=== PATIENT | female | born 1995 | race Caucasian/White ===

== ENCOUNTER → 2018-07-18 | Outpatient (CLI) | payer OTHER ==
[~2018-07-18] MED LIST: IBUP800 PO; NEXPLANON; PHENA200 PO; SULTRIDS PO; Verotin-Gr Cap1 EACH PO
[2018-07-19 11:21] LABS: Candida species (DNA Probe) Negative (NEGATIVE); G. vaginalis (DNA Probe) Negative (NEGATIVE); T. vaginalis (DNA Probe) Negative (NEGATIVE)
[2018-07-20 00:12] LABS: CHLAMYDIA TRACHOMATIS, NAA Positive (Negative); NEISSERIA GONORRHOEAE, NAA Negative (Negative)
== END ==
LOC: LAB SHORT 16:45 → LAB 16:45
PROVIDERS: Nurse Practitioner Family
DX: N89.8 Other specified noninflammatory disorders of vagina (principal)
CPT/HCPCS: 87480; 87491; 87510; 87591; 87660

== ENCOUNTER → 2018-08-11 | Outpatient (CLI) | payer OTHER ==
[2018-08-11 14:26] LABS: Candida species (DNA Probe) Negative (NEGATIVE); G. vaginalis (DNA Probe) Positive (NEGATIVE); T. vaginalis (DNA Probe) Negative (NEGATIVE)
== END ==
LOC: LAB 10:00 → LAB SHORT 10:00
PROVIDERS: Registered Nurse Community Health
DX: B00.9 Herpesviral infection, unspecified (principal); Z20.2 Contact with and (suspected) exposure to infections with a predominantly sexual mode of transmission
CPT/HCPCS: 87480; 87510; 87529; 87660

== ENCOUNTER 2018-12-02 21:30 | Emergency (ER) | payer OTHER ==
[~2018-12-02] VITALS: Ht 162.6 cm; Wt 90.7 kg
[2018-12-02 22:01] LABS: BASOPHILS PERCENT AUTO 1 % (0-2); EOSINOPHILS ABSOLUTE AUTO 0.29 K/mm3 (0.00-0.68); EOSINOPHILS PERCENT AUTO 2 % (0-6); Hematocrit 38.4 % (33.0-51.0); Hemoglobin 12.3 g/dL (11.5-16.0); IMMATURE GRAN ABSOLUTE AUTO 0.05 K/mm3 (0.00-0.10); IMMATURE GRAN PERCENT AUTO 0 % (0-1); LYMPHOCYTES ABSOLUTE AUTO 3.35 K/mm3 (0.84-5.20); LYMPHOCYTES PERCENT AUTO 23 % (21-46); MONOCYTES ABSOLUTE AUTO 1.04 K/mm3 (0.16-1.47); MONOCYTES PERCENT AUTO 7 % (4-13); Mean Corpuscular HGB 29.5 pg (26.0-34.0); Mean Corpuscular Volume 92 fL (80-100); Mean Platelet Volume 10.6 fL (9.1-12.4); NEUTROPHILS ABSOLUTE AUTO 9.55 K/mm3 (1.96-9.15); NEUTROPHILS PERCENT AUTO 67 % (41-73); Platelet Count 319 K/mm3 (150-400); RDW Coefficient Variation 13.4 % (11.7-14.2); RDW Standard Deviation 45.6 fL (35.1-46.3); Red Blood Cell Count 4.17 M/mm3 (3.80-5.20); White Blood Cell Count 14.38 K/mm3 (4.00-11.30)
[2018-12-02 22:18] LABS: Alanine Aminotransfer (ALT/SGP 24 U/L (12-78); Albumin, Blood 3.7 g/dL (3.4-5.0); Albumin/Globulin Ratio 0.9 (0.8-1.8); Alk Phos 68 U/L (50-136); Anion Gap 7 mmol/L (6-16); Aspartate Aminotrans (AST/SGOT 18 U/L (12-37); Bilirubin, Total 0.2 mg/dL (0.1-1.0); Blood Urea Nitrogen 11 mg/dL (8-24); Bun/Creatinine Ratio 15.9 (12.0-20.0); CO2, Blood 27 mmol/L (21-32); Calcium, Blood 8.9 mg/dL (8.5-10.1); Chloride, Blood 106 mmol/L (98-108); Creatinine, Blood 0.69 mg/dL (0.40-1.00); Globulin, Blood 4.2 g/dL (2.2-4.0); Glomerular Filtration Rate >60 (60-); Glucose, Blood 89 mg/dL (70-99); Potassium, Blood 3.7 mmol/L (3.5-5.5); Sodium, Blood 140 mmol/L (136-145); Total Protein, Blood 7.9 g/dL (6.4-8.2)
[2018-12-03] LABS: Source, Urine Clean Catch
[2018-12-03 00:02] LABS: Bilirubin, Urine Neg (Neg); Blood, Urine Neg (Neg); Glucose Qualitative, Urine Neg (Neg); Ketones, Urine Neg (Neg); Leukocyte Esterase, Urine 2+ (Neg); Nitrite, Urine Neg (Neg); Protein, Urine Neg (Neg); Urobilinogen, Urine NORM (Normal)
[2018-12-03 00:07] LABS: Appearance, Urine Clear (Clear); Color, Urine Yellow (P-Yellow)
[2018-12-03 00:09] LABS: Bacteria Few /hpf; Red Blood Cells, Urine Not Seen /hpf (0-2); Squamous Epithelial Cells Few /hpf (Few)
[2018-12-03] MEDS ORDERED: CEPH500 PO (01:08)
== END 2018-12-03 01:36 | disposition home or self-care (01) ==
LOC: ER 21:30
PROVIDERS: Emergency Medicine
DX: N83.02 Follicular cyst of left ovary (principal); N83.01 Follicular cyst of right ovary; Z91.030 Bee allergy status; Z91.040 Latex allergy status; Z88.2 Allergy status to sulfonamides; Z91.048 Other nonmedicinal substance allergy status; Z91.011 Allergy to milk products; Z79.899 Other long term (current) drug therapy; F17.200 Nicotine dependence, unspecified, uncomplicated
CPT/HCPCS: 36415; 76830; 76856; 80053; 81001; 81025; 85025; 87086; 96374; 99284-25; J1885

== ENCOUNTER 2018-12-26 05:59 | Inpatient (IN) | payer OTHER ==
[~2018-12-26] VITALS: Ht 162.6 cm; Wt 90.2 kg
[~2018-12-26 05:59] MED LIST changes: +CEPH500 PO; -IBUP800 PO
[2018-12-26 06:31] LABS: Source, Urine Clean Catch
[2018-12-26 06:35] LABS: Bilirubin, Urine Neg (Neg); Blood, Urine Neg (Neg); Glucose Qualitative, Urine Neg (Neg); Ketones, Urine Neg (Neg); Leukocyte Esterase, Urine Neg (Neg); Nitrite, Urine Neg (Neg); Protein, Urine Neg (Neg); Urobilinogen, Urine NORM (Normal)
[2018-12-26 06:41] LABS: Appearance, Urine Clear (Clear); Color, Urine Yellow (P-Yellow)
[2018-12-26 06:48] LABS: BASOPHILS ABSOLUTE AUTO 0.09 K/mm3 (0.00-0.23); BASOPHILS PERCENT AUTO 1 % (0-2); EOSINOPHILS ABSOLUTE AUTO 0.38 K/mm3 (0.00-0.68); EOSINOPHILS PERCENT AUTO 3 % (0-6); Hematocrit 36.4 % (33.0-51.0); Hemoglobin 11.9 g/dL (11.5-16.0); IMMATURE GRAN ABSOLUTE AUTO 0.07 K/mm3 (0.00-0.10); IMMATURE GRAN PERCENT AUTO 1 % (0-1); LYMPHOCYTES ABSOLUTE AUTO 3.78 K/mm3 (0.84-5.20); LYMPHOCYTES PERCENT AUTO 29 % (21-46); MONOCYTES ABSOLUTE AUTO 0.91 K/mm3 (0.16-1.47); MONOCYTES PERCENT AUTO 7 % (4-13); Mean Corpuscular HGB 28.6 pg (26.0-34.0); Mean Corpuscular HGB Conc 32.7 g/dL (31.5-36.5); Mean Corpuscular Volume 88 fL (80-100); Mean Platelet Volume 10.2 fL (9.1-12.4); NEUTROPHILS PERCENT AUTO 60 % (41-73); Platelet Count 359 K/mm3 (150-400); RDW Coefficient Variation 14.1 % (11.7-14.2); RDW Standard Deviation 45.1 fL (35.1-46.3); Red Blood Cell Count 4.16 M/mm3 (3.80-5.20); White Blood Cell Count 12.93 K/mm3 (4.00-11.30)
[2018-12-26 07:08] LABS: Alanine Aminotransfer (ALT/SGP 19 U/L (12-78); Albumin, Blood 3.4 g/dL (3.4-5.0); Albumin/Globulin Ratio 0.8 (0.8-1.8); Alk Phos 56 U/L (50-136); Anion Gap 6 mmol/L (6-16); Aspartate Aminotrans (AST/SGOT 13 U/L (12-37); Bilirubin, Total 0.3 mg/dL (0.1-1.0); Blood Urea Nitrogen 15 mg/dL (8-24); Bun/Creatinine Ratio 23.4 (12.0-20.0); CO2, Blood 26 mmol/L (21-32); Calcium, Blood 8.6 mg/dL (8.5-10.1); Chloride, Blood 107 mmol/L (98-108); Creatinine, Blood 0.64 mg/dL (0.40-1.00); Globulin, Blood 4.5 g/dL (2.2-4.0); Glomerular Filtration Rate >60 (60-); Glucose, Blood 102 mg/dL (70-99); Potassium, Blood 3.6 mmol/L (3.5-5.5); Sodium, Blood 139 mmol/L (136-145); Total Protein, Blood 7.9 g/dL (6.4-8.2)
[2018-12-26 10:31] LABS: International Normalized Ratio 0.95; Prothrombin Time Results 10.1 Sec (9.7-11.5)
--- NOTE | 2018-12-26 11:20 | NUR ---
PERMISSION FOR CARE PATIENT GAVE STUDENT PERMISSION TO PROVIDE CARE ON 12/26/18.
[2018-12-26] MEDS ORDERED: PROG100 PO (12:44)
[2018-12-26] MEDS ORDERED: VITAMIN D250000 UNIT PO (12:45)
[2018-12-26] MEDS ORDERED: IBUP800 PO (13:27)
--- NOTE | 2018-12-26 16:14 | NUR ---
PT IN TO ICU AT 1430. DENIES ABD. PAIN IF SHE IS NOT MOVING. HEP GTT AT 13UNITS,18.2 ML. PT IS VERY A/O AND DENIES ANY FALLS, ABD BUMPS OF ANY KIND. SHE HAS HX OF OVARIAN CYST BUT NO OTHER RECENT PAIN OR INJURIES. PT IS ON RA.
[2018-12-26 19:36] LABS: Source, Urine Catheter
[2018-12-26 19:40] LABS: Bilirubin, Urine Neg (Neg); Blood, Urine Neg (Neg); Glucose Qualitative, Urine Neg (Neg); Ketones, Urine Neg (Neg); Leukocyte Esterase, Urine Neg (Neg); Nitrite, Urine Neg (Neg); Protein, Urine Neg (Neg); Urobilinogen, Urine NORM (Normal); pH, Urine 6.5 (5.0-8.0)
[2018-12-26 19:46] LABS: Appearance, Urine Clear (Clear); Color, Urine Yellow (P-Yellow)
--- NOTE | 2018-12-26 19:56 | NUR ---
PT RETURNED FROM DESK SERGEANT AT 1740. PT A/O, GOOD PERIPHERAL PULSES, SATS NOTED ON RA, NEURO INTACT, R GROIN CATH SITE IS STABLE WITH TPA INFUSING PER SITE AT 1 MG PER HOUR, HEPARIN AT 6 ML OR 3.3 U/KG/HR, AND NS WITH 20KCL AT 75ML. PT IS C/O LOZANO AND WILL MEDICATE LYDIA. NO OOZING OR HEMATOMA AT R GROIN SITE. FAMILY ARE CONCERNED THAT THERE WAS NOT ARRANGEMENTS MADE FOR THEM TO SPEAK WITH DR SHEFFIELD. FAMILY WAS BROUGHT UP TO DATE PER RN AND THEY ARE NOTIBLE CONCERNED. VS NOTED.
--- NOTE | 2018-12-26 20:04 | NUR ---
1900 CRAMER CATH INSERTED PER TRUNG CLINTON AT PT REQUEST DUE TO R GROIN SHEATH AND LINE SAFETY. PT VERY WILLING FOR THIS.
--- NOTE | 2018-12-26 21:07 | NUR ---
START OF SHIFT: BEDSIDE REPORT FROM ZULEMA CLINTON. FAMILY IN ROOM. PT REMAINS LYING SUPINE POSTION. PT A+O X4, LS CLEAR (SLIGHTLY DIM AT BILAT BASES), PT ON RA SATS 95-97% WHILE IN ROOM. PT WITH R GROIN SHEATH ASSESSED AND IS CONTINUED WITHOUT BRUISING, HEMATOMA, OR SWELLING. SHEATH IN PLACE INFUSING tPa AT 1mg/hr AND WAS VERIFIED HAVING BEEN STARTED AT 1717. ORDER VERIFIED FOR tPa TO INFUSE AT 1mg/hr FOR 6 HOURS THEN REDUCE TO 0.5mg/hr UNTIL PT RETURNS TO EDI CONSULTANT IN THE AM. RIGHT GROIN SITE ASSESSED ALONG WITH NEURO CHECK DURING REPORT AND Q30min THIS SHIFT THUS FAR AND ARE BOTH WNL. HEPRIN gtt ORDER VERIFIED INFUSING AT 3.3u/kg/hr UNTIL PT RETURNS TO EDI CONSULTANT IN AM. NS C/20mEq INFUSING AT 75mL/hr. OTHER ORDER VERIFIED AND WERE PLACED BY ZULEMA ACCORDING TO SAID VERBAL ORDER PER DR. SHEFFIELD. WILL CONTINUE Q1' AND PRN NEURO CHECKS, R GROIN SHEATH ACCESS SITE, PERIPHERAK PULSES AND BILAT LE COLOR, TEMP, AND SWELLING. PT WITH C/O PAIN AND STATED LOZANO PAIN OF 9/10, LOWER MID BACK PAIN, AND R GROIN TENDERNESS PAIN. PT WAS MEDICATED WITH DILAUDID AT THE CHANGE OF SHIFT BY ZULEMA CLINTON. REASSESSMENT PT STATED PAIN (S) 2/10. PT WITH SEVERAL FAMILY MEMBERS IN AND OUT OF ROOM. FAMILY VERY FRIENDLY, APPROPRIATE, AND COOPERATIVE. FAMILY DID HAVE COMPLAINT OF NOT GETTING AN UPDATE VIA MD AFTER EDI CONSULTANT PROCEDURE. FAMILY STATED THAT ALL FAMILY WERE WAITING IN THE ICU WAITING ROOM AND WERE NOT UPDATED BY MD AND WERE (AT TIME OF CHANGE OF SHIFT) UPDATED FROM ZULEMA CLINTON. WILL CONTINUE NEURO AND SITE CHECKS Q1' AND PRN. MANAGE PAIN. PROVIDE COMFORT. PT NPO.
--- NOTE | 2018-12-26 21:59 | NUR ---
NEURO CHECK AND GROIN SITE ASSESSMENT WITHOUT ANY CHANGES. VSS. PT WITH NO NEW COMPLAINTS. PT SLEEPING WHEN NOT DISTURBED BUT AWAKENS EASILY TO RN AT BEDSIDE. BOYFRIEND AT BEDSIDE. JUAREZ HOSE PLACED ON BILAT LOWER EXTREM. PT C/O R ANKLE PAIN. NO BRUISING OR SWELLING NOTED. PAIN SUBSIDED WHILE PLACING JUAREZ HOSES. PT DENIED HEEL OR CALF PAIN.
--- NOTE | 2018-12-27 00:17 | NUR ---
NEURO, R GROIN SITE, AND PERIPHERAL ASSESSMENT WITHOUT ANY CHANGES FROM INITIAL ASSESSMENT. PT BECOMING SLIGHTLY AGITATED WITH AWAKENINGS AND CONTINUES TO C/O LOZANO, ABD PAIN, AND MID BACK PAIN. PT STATES THAT EACH PAIN IS THE SAME WHEN FIRST AWAKENED THIS AM. PT MEDICATED T/O THUS FAR WITH RELIEF EACH TIME. WILL CONTINUE NEURO CHECKS AND GROIN SITE Q1'.
--- NOTE | 2018-12-27 00:58 | NUR ---
REPORT TO EDOAURD CLINTON TO ASSUME CARE OF PT AT THIS TIME. ORDERS AND DRIPS REVIEWED. ALL QUESTIONS ANSWERED.
--- NOTE | 2018-12-27 01:18 | NUR ---
ASSUMED CARE OF PT AT THIS TIME, REPORT FROM OFF GOING RN. PT. AWAKENS EASILY TO VERBAL STIMULI, FOLLOWS COMMANDS, NUTRITION TECH EQUAL BILAT. PT. CONTINUES TO REPORT HEADACHE 4/10 WELL PAIN TO ABD 4/10. PT. PROVIDED WITH COOL WASHCLOTH TO PLACE ON FOREHEAD. SHEATH TO RIGHT GROIN- SITE STABLE, NO HEMATOMA, NO OOZING, NO SWELLING. PT. CONTINUES WITH HEPARIN GTT AND CATHFLO GTT INFUSING. PT REMAINS IN SUPINE POSITION AT THIS TIME. VSS AT THIS TIME. CALL LIGHT IN REACH.
[2018-12-27 06:02] LABS: BASOPHILS ABSOLUTE AUTO 0.06 K/mm3 (0.00-0.23); BASOPHILS PERCENT AUTO 1 % (0-2); EOSINOPHILS ABSOLUTE AUTO 0.17 K/mm3 (0.00-0.68); EOSINOPHILS PERCENT AUTO 2 % (0-6); Hematocrit 35.4 % (33.0-51.0); Hemoglobin 11.3 g/dL (11.5-16.0); IMMATURE GRAN ABSOLUTE AUTO 0.03 K/mm3 (0.00-0.10); IMMATURE GRAN PERCENT AUTO 0 % (0-1); LYMPHOCYTES ABSOLUTE AUTO 2.51 K/mm3 (0.84-5.20); LYMPHOCYTES PERCENT AUTO 25 % (21-46); MONOCYTES ABSOLUTE AUTO 0.56 K/mm3 (0.16-1.47); MONOCYTES PERCENT AUTO 6 % (4-13); Mean Corpuscular HGB 28.8 pg (26.0-34.0); Mean Corpuscular HGB Conc 31.9 g/dL (31.5-36.5); Mean Corpuscular Volume 90 fL (80-100); Mean Platelet Volume 10.2 fL (9.1-12.4); NEUTROPHILS ABSOLUTE AUTO 6.76 K/mm3 (1.96-9.15); NEUTROPHILS PERCENT AUTO 67 % (41-73); Platelet Count 302 K/mm3 (150-400); RDW Coefficient Variation 14.2 % (11.7-14.2); RDW Standard Deviation 47.2 fL (35.1-46.3); Red Blood Cell Count 3.93 M/mm3 (3.80-5.20); White Blood Cell Count 10.09 K/mm3 (4.00-11.30)
--- NOTE | 2018-12-27 06:13 | NUR ---
SHIFT SUMMARY PT. REMAINS ALERT AND ORIENTED T/O SHIFT. NO CHANGES WITH NEURO CHECKS. PT. CONTINUES IN SUPINE POSITION WITH SHEATH TO RIGHT GROIN INFUSING CATHFLO. PT. CONTINUES ON HEPARIN AND NS WITH KCL WELL PER ORDER. PT. C/O PAIN FREQUENTLY T/O SHIFT AND WAS MED WITH DILAUDID PER PT. REQUEST. OCCASIONAL NAUSEA T/O SHIFT MED WITH ZOFRAN AND COMPAZINE, PT SEEMED TO HAVE BETTER RELIEF FROM ZOFRAN. PT. HAS CRAMER IN PLACE DRAINING TO GRAVITY.VSS T/O SHIFT. REPORT TO ONCOMING RN
[2018-12-27 06:20] LABS: Anion Gap 4 mmol/L (6-16); Blood Urea Nitrogen 9 mg/dL (8-24); Bun/Creatinine Ratio 16.2 (12.0-20.0); CO2, Blood 27 mmol/L (21-32); Calcium, Blood 7.9 mg/dL (8.5-10.1); Chloride, Blood 109 mmol/L (98-108); Creatinine, Blood 0.56 mg/dL (0.40-1.00); Glomerular Filtration Rate >60 (60-); Glucose, Blood 95 mg/dL (70-99); Potassium, Blood 4.1 mmol/L (3.5-5.5); Sodium, Blood 140 mmol/L (136-145)
--- NOTE | 2018-12-27 07:30 | NUR ---
DR. SHEFFIELD IN ROOM TO SPEAK WITH PATIENT AND FAMILY.
--- NOTE | 2018-12-27 07:45 | NUR ---
INITIAL ASSESSMENT PATIENT RESTING QUIETLY IN BED UPON ENTERING ROOM. MANY FAMILY MEMBERS AT BEDSIDE. PATIENT APPEARS LETHARGIC BUT IS ALERT AND ORIENTED X 4. PATIENT DENIES N/T. PATIENT AFEBRILE. PATIENT STATES PAIN IS MANAGEABLE AT THIS TIME. PATIENT RECEIVED PRN PAIN MEDICATION SHORT TIME AGO FOR COMPLAINT OF PAIN IN BACK, ABDOMEN, AND HEADACHE. PATIENT SATTING 90% AND GREATER ON RA. LUNGS CLEAR IN UPPER LOBES, DIMINISHED IN LOWER LOBES. PATIENT APPEARS TO BE IN SINUS ARRYTHMIA. HR 60S TO 70S. BP STABLE. PULSES STRONG IN ALL EXTREMITIES. ANTI-EMBOLISM STOCKINGS IN PLACE. PATIENT DENIES NAUSEA AT THIS TIME. CRAMER IN PLACE, DRAINING CLEAR/ YELLOW COLORED URINE. BRUISE TO R FA. TPA INFUSING INTO SHEATH IN R FEMORAL SITE. SITE APPEARS WNL- NO BLEEDING, BRUISING, HEMATOMA NOTED. NS KCL INFUSING AT 75 MLS/ HOUR. TPA AT 0.5 MG/ HOUR. HEPARIN AT 6 MLS/ HOUR. PATIENT TO GO BACK TO [facility] CONSULTANT THIS AM. BED LOW, CALL LIGHT IN REACH. WILL CONTINUE TO MONITOR PATIENT FREQUENTLY THROUGHOUT SHIFT.
--- NOTE | 2018-12-27 08:06 | NUR ---
PATIENT TAKEN TO TRANSIT MECHANIC.
--- NOTE | 2018-12-27 09:27 | NUR ---
PATIENT BACK FROM SHELL MOLD BONDING MACHINE OPERATOR. RNS REPORT THAT VEIN IS CLEAR AFTER TPA AND NO OTHER INTERVENTIONS WERE NEEDED. ANGIOSEAL IN PLACE. SITE WNL- NO BLEEDING, BRUISING, HEMATOMA NOTED. SITE SOFT TO PALPATION. WILL CONTINUE TO MONITOR.
--- NOTE | 2018-12-27 10:12 | NUR ---
R FEM SITE REMAINS WNL. WILL CONTINUE TO MONITOR.
--- NOTE | 2018-12-27 11:46 | NUR ---
PATIENT RESTING QUIETLY IN BED. PATIENT REMAINS ALERT AND ORIENTED, AFEBRILE. PATIENT STATES BACK/ ABDOMEN PAIN IS TOLERABLE AT 2/10 AT THIS TIME. PATIENT STATES HEADACHE IS TOLERABLE AT 1/10 AT THIS TIME. PATIENT IS NOW ACTIVITY TOLERATED. PATIENT SATTING 90% AND GREATER ON RA. PATIENT IN SR TO ST, HR 90S TO LOW 100S. BP STABLE. PULSES REMAIN STRONG. PATIENT ABLE TO EAT 2 JELLOS AND SOME ICE WATER WITH NO NAUSEA REPORTED AFTERWARD OF NOW. CRAMER REMAINS DRAINING ADEQUATE AMOUNT OF YELLOW COLORED URINE. R FEMORAL SITE REMAINS WNL- SOFT TO PALPATION, NO BLEEDING, BRUISING, HEMATOMA NOTED. NSKCL INFUSING AT 75 MLS/ HOUR, HEPARIN RESTARTED AT 15 UNITS/ KG/ HOUR. WILL CONTINUE TO MONITOR.
--- NOTE | 2018-12-27 14:06 | NUR ---
SHIFT SUMMARY PATIENT HAS REMAINED ALERT AND ORIENTED, AFEBRILE. COMPLAINTS OF PAIN IN BACK/ ABDOMEN AND HEADACHE HAVE LESSENED SHIFT HAS PROGRESSED. PATIENT WENT TO PROTECTIVE SIGNAL REPAIRER THIS AM. NO FURTHER INTERVENTIONS NEEDED IN PROTECTIVE SIGNAL REPAIRER REPORTED THAT TPA CLEARED VESSEL. PATIENT HAS SATTED WELL ON RA; 2 L NC OCCASIONALLY NEEDED AFTER PRN DILAUDID ADMINISTRATION. PATIENT HAS BEEN IN SINUS ARRHYTHMIA/SR/ST, HR 60S TO LOW 100S. BP HAS REMAINED STABLE. PULSES HAVE REMAINED STRONG. PATIENT HAS NOT HAD ANY COMPLAINTS OF NAUSEA THIS SHIFT. PATIENT TOLERATING FOOD WELL THUS FAR. CRAMER REMAINS DRAINING ADEQUATE AMOUNT OF YELLOW URINE. CRAMER TO BE REMOVED ONCE PATIENT UP AND AMBULATING. ANGIOSEAL TO R FEMORAL SITE. SITE REMAINS WNL- SOFT TO PALPATION, NO BLEEDING, BRUISING, HEMATOMA NOTED. NS KCL AT 75 MLS/ HOUR, HEPARIN AT 15 UNITS/ KG/ HOUR. PATIENT WILL BE TRANSFERRED TO PCU 01 SHORTLY.
--- NOTE | 2018-12-27 15:00 | NUR ---
ASSUMED CARE VS STABLE. SATS >90% ON RA. PT DENIES ANY PAIN AT THIS TIME. RIGHT FEMORAL SITE HAS ANGIOSEAL IN PLACE WITH NO SIGNS OF BLEEDING, HEMATOMA FORMATION, OR BRUISING. CRAMER CATHETER TO BE REMOVED ONCE PT IS ABLE TO AMBULATE. PT REPORTS FEELING "VERY WEAK". FAMILY AT BEDSIDE. HEPARIN GTT INFUSING PER ORDERS. NS WITH KCL INFUSING PER ORDERS. WILL CONTINUE TO MONITOR CLOSELY.
--- NOTE | 2018-12-27 18:04 | NUR ---
SHIFT SUMMARY PT ALERT AND ORIENTED. VS STABLE. PT TOLERATING DINNER. DR. WAN IN TO SEE PT AND ORDERS TO DC HEPARIN DRIP AND START XARELTO PER PHARMACY PROTOCOL. PT DENIES ANY PAIN AT THIS TIME. FAMILY AT BEDSIDE. RIGHT FEMORAL SITE FREE FROM ANY BLEEDING, HEMATOMA FORMATION, OR BRUISING. WILL CONTINUE TO MONITOR AND REPORT TO ONCOMING RN. CALL LIGHT IN REACH.
[2018-12-28 04:26] LABS: Hematocrit 35.7 % (33.0-51.0); Hemoglobin 11.4 g/dL (11.5-16.0); Mean Corpuscular HGB 28.3 pg (26.0-34.0); Mean Corpuscular HGB Conc 31.9 g/dL (31.5-36.5); Mean Corpuscular Volume 89 fL (80-100); Mean Platelet Volume 10.6 fL (9.1-12.4); Platelet Count 310 K/mm3 (150-400); RDW Coefficient Variation 14.2 % (11.7-14.2); RDW Standard Deviation 45.8 fL (35.1-46.3); Red Blood Cell Count 4.03 M/mm3 (3.80-5.20); White Blood Cell Count 10.23 K/mm3 (4.00-11.30)
[2018-12-28 04:50] LABS: Anion Gap 8 mmol/L (6-16); Blood Urea Nitrogen 10 mg/dL (8-24); Bun/Creatinine Ratio 17.8 (12.0-20.0); CO2, Blood 26 mmol/L (21-32); Calcium, Blood 8.4 mg/dL (8.5-10.1); Chloride, Blood 106 mmol/L (98-108); Creatinine, Blood 0.56 mg/dL (0.40-1.00); Glomerular Filtration Rate >60 (60-); Glucose, Blood 87 mg/dL (70-99); Potassium, Blood 3.8 mmol/L (3.5-5.5); Sodium, Blood 140 mmol/L (136-145)
--- NOTE | 2018-12-28 05:18 | NUR ---
SHIFT SUMMARY PT A&O X4, CALM AND COOPERATIVE. VSS. R FEM ACCESS SITE WNL, TENDER W/ NO BLEEDING, NO HEMATOMA, DRESSING C/D/I. MONITOR SHOWS NSR. LUNG SOUNDS DIM T/O, SPO2 > 92% ON RA. CRAMER CATH DC'D, PT AMBULATING INTO BATHROOM W/ SBA, VOIDING CLEAR YELLOW URINE. PT C/O BACK PAIN TX'D X1 PER EMAR. CALL TO MD VALDES THIS SHIFT FOR ORDERS FOR LAB DRAW TO CHECK K THIS AM D/T Q13H NS W/ K GTT. NS W/ K GTT INFUSING PER EMAR. WILL CONTINUE TO MONITOR AND PROVIDE CARE UNTIL REPORT OFF TO DAY SHIFT RN.
[2018-12-28] MEDS ORDERED: XARELTO20 MG PO (08:53)
[2018-12-28] MEDS ORDERED: OXYC5 PO (10:20)
--- NOTE | 2018-12-28 10:37 | NUR ---
DISCHARGE DISCHARGE MEDICATIONS AND INSTRUCTIONS EXPLAINED TO PATIENT AND PATIENT'S MOTHER. IV REMOVED WITHOUT DIFFICULTY. XARELTO COUPONS GIVEN TO PATIENT. BELONGINGS WITH PATIENT. PATIENT TRANSFERED TO PRIVATE VEHICLE VIA WHEELCHAIR.
== END 2018-12-28 10:37 | disposition home or self-care (01) | DRG 443 ==
LOC: ER 05:59 → ICUW 12:39 → PCU 12-27 14:29
PROVIDERS: Emergency Medicine; Internal Medicine; Radiology Diagnostic Radiology; ADMIT Hospitalist
DX: I81 Portal vein thrombosis (principal); F17.210 Nicotine dependence, cigarettes, uncomplicated; Z68.34 Body mass index [BMI] 34.0-34.9, adult; E66.9 Obesity, unspecified
CPT/HCPCS: 36245; 36415; 37211; 37214; 51702; 74177; 75625; 75726; 76705; 80048; 80053; 81003; 81025; 81241; 83605; 83690; 85025; 85027; 85347; 85384; 85610; 85730; 96361; 96365-59; 96375; 96376; 99152; 99153; 99285-25; C1751; C1760; C1769; C1887; C1894; C9113; J0780; J1170; J1644; J2250; J2405; J2997; J3010; J3480; J7030; J7050; J7120; Q9967

== ENCOUNTER → 2019-04-16 | Outpatient (CLI) | payer OTHER ==
[~2019-04-16] MED LIST changes: +IBUP800 PO; +OXYC5 PO; +PROG100 PO; +VITAMIN D250000 UNIT PO; +XARELTO20 MG PO
== END | disposition home or self-care (01) ==
LOC: PLD 07:44 → LAB SHORT 07:44
DX: R87.612 Low grade squamous intraepithelial lesion on cytologic smear of cervix (LGSIL) (principal); R87.618 Other abnormal cytological findings on specimens from cervix uteri
CPT/HCPCS: 88305

== ENCOUNTER 2019-06-19 10:31 | Emergency (ER) | payer OTHER ==
[~2019-06-19] VITALS: Ht 162.6 cm; Wt 90.7 kg
[2019-06-19] MEDS ORDERED: Phentermine HCl30 MG (10:55)
[2019-06-19] MEDS ORDERED: WARF7.5 PO (10:55)
[2019-06-19] MEDS ORDERED: HYDR1TAB94 PO (10:55)
[2019-06-19 12:04] LABS: International Normalized Ratio 1.86; Prothrombin Time Results 18.6 Sec (9.7-11.5)
== END 2019-06-19 12:15 | disposition home or self-care (01) ==
LOC: ER 10:31
PROVIDERS: Physician Assistant
DX: S93.402A Sprain of unspecified ligament of left ankle, initial encounter (principal); R79.1 Abnormal coagulation profile; F17.200 Nicotine dependence, unspecified, uncomplicated; Z88.2 Allergy status to sulfonamides; Z79.899 Other long term (current) drug therapy; Z79.01 Long term (current) use of anticoagulants; W01.10XA Fall on same level from slipping, tripping and stumbling with subsequent striking against unspecified object, initial encounter; Y93.02 Activity, running
CPT/HCPCS: 36415; 73610; 85610; 99283-25

== ENCOUNTER 2019-12-20 06:09 | Day surgery (SDC) | payer OTHER ==
[~2019-12-20] VITALS: Ht 162.6 cm; Wt 79.6 kg
[~2019-12-20 06:09] MED LIST changes: +HYDR1TAB94 PO; +Phentermine HCl30 MG; +WARF7.5 PO
[2019-12-20] MEDS ORDERED: ENOX80I SC (06:27)
--- NOTE | 2019-12-20 06:55 | NUR ---
Ambulatory in Day Surgery. History, Chart, Medications and Allergies reviewed before start of procedure.Patient confirms NPO status and agrees with scheduled surgery. Patient reports completing Chlorhexadine shower X2 prior to admission to hospital.Surgical site prepped with 2% Chlorhexidine cloth wipe. Lungs clear T/O to Auscultation. Patient States Post-Procedure ride home has been arranged WITH FATHER.
--- NOTE | 2019-12-20 10:00 | NUR ---
DISCHARGE Patient up to Ambulate independently. Gait steady. Discharge instructions reviewed with patient. Patient verbalizes understanding. Copy given to patient to take home. Dressing to procedure site clean, dry, intact with no visible drainage, swelling, erythema or bruising noted. Patient States Post-Procedure ride home has been arranged. Discharged via wheelchair to private car for ride home. PT STATES PAIN IS BETTER 3/10 NO NAUSEA OR VOMITING DAD HERE TO GIVE RIDE HOME
== END 2019-12-20 10:00 | disposition home or self-care (01) ==
LOC: ORSCMMR 06:09 → ORD 07:30 → ORSCMMR 10:00 → ORSCSDS 12-21 07:30
PROVIDERS: Obstetrics & Gynecology
PROC: 0UT74ZZ Resection of Bilateral Fallopian Tubes, Percutaneous Endoscopic Approach (ICD-10-PCS; principal; 2019-12-20 07:30)
DX: Z30.2 Encounter for sterilization (principal); N80.3 Endometriosis of pelvic peritoneum; F17.210 Nicotine dependence, cigarettes, uncomplicated; Z86.718 Personal history of other venous thrombosis and embolism; Z79.01 Long term (current) use of anticoagulants
CPT/HCPCS: J0690; J1100; J1885; J2250; J2405; J2704; J3010; J7120

== ENCOUNTER 2020-11-06 11:52 | Day surgery (SDC) | payer BC, OTHER ==
[~2020-11-06] VITALS: Ht 162.6 cm; Wt 93.8 kg
[~2020-11-06 11:52] MED LIST changes: +ENOX80I SC; +WARF5 PO
[2020-11-06] MEDS ORDERED: IBUP800 PO (12:10)
--- NOTE | 2020-11-06 13:35 | NUR ---
11/06/20 1335 Edgardo Davis EPI 1CC/EACH ADDED TO FIRST 3 BAGS LR
--- NOTE | 2020-11-06 14:39 | NUR ---
11/06/20 0829 Latasha Bolaños V PT RESTING IN RECLINER, CALL LIGHT WITHIN REACH, VSS. PT STATES SHE IS STILL GROGGY.
== END 2020-11-06 15:17 | disposition home or self-care (01) ==
LOC: ORSCSDS 11:52
PROVIDERS: Orthopaedic Surgery
PROC: 0LQ14ZZ Repair Right Shoulder Tendon, Percutaneous Endoscopic Approach (ICD-10-PCS; principal; 2020-11-06 13:15)
PROC: 0LU14KZ Supplement Right Shoulder Tendon with Nonautologous Tissue Substitute, Percutaneous Endoscopic Approach (ICD-10-PCS; principal; 2020-11-06 13:15)
DX: M75.111 Incomplete rotator cuff tear or rupture of right shoulder, not specified as traumatic (principal); E66.01 Morbid (severe) obesity due to excess calories; Z68.35 Body mass index [BMI] 35.0-35.9, adult
CPT/HCPCS: C1713; J0171; J0690; J2250; J2704; J2765; J3010; J7120

== ENCOUNTER → 2021-01-20 | Outpatient (CLI) | payer BC, OTHER ==
[2021-01-21 14:10] LABS: HPV 16 Negative (Negative); HPV 18 Negative (Negative); HPV OTHER HR TYPES Positive (Negative)
== END ==
LOC: LAB SHORT 12:15 → LAB 12:15
PROVIDERS: Registered Nurse Community Health
DX: Z12.4 Encounter for screening for malignant neoplasm of cervix (principal)
CPT/HCPCS: 87624; 87625; G0123

== ENCOUNTER → 2022-05-13 | Outpatient (CLI) | payer BC, OTHER ==
[2022-05-17 15:08] LABS: HPV 16 Negative (Negative); HPV 18 Negative (Negative); HPV OTHER HR TYPES Positive (Negative)
== END | disposition home or self-care (01) ==
LOC: LAB 16:00 → LAB SHORT 16:00
PROVIDERS: Registered Nurse Community Health
DX: Z01.419 Encounter for gynecological examination (general) (routine) without abnormal findings (principal)
CPT/HCPCS: 87624; 87625; G0123

== ENCOUNTER → 2023-05-26 | Outpatient (CLI) | payer BC, OTHER ==
[2023-06-01 15:12] LABS: HPV 16 Negative (Negative); HPV 18 Negative (Negative); HPV OTHER HR TYPES Positive (Negative)
== END | disposition home or self-care (01) ==
LOC: LAB 13:14 → LAB SHORT 13:14
PROVIDERS: Registered Nurse Community Health
DX: Z12.4 Encounter for screening for malignant neoplasm of cervix (principal)
CPT/HCPCS: 87624; G0145

== ENCOUNTER 2023-11-03 11:24 | Day surgery (SDC) | payer BC, OTHER ==
[2023-11-03] VITALS (20 sets, daily range): BP systolic 125–167; BP diastolic 80–111
[~2023-11-03] VITALS: Ht 164 cm; Wt 108.8 kg
[~2023-11-03 11:24] MED LIST changes: +ACYC200 PO; +CeFAZolin Sodium 2,000 MG in NS 100 ML IV SCH; +Cyclobenzaprine5 MG PO; +Lactated Ringer's 1,000 ML IV SCH
[2023-11-03] MEDS ORDERED: VARENICLINE TART1 M2 PO (11:38)
[2023-11-03] MEDS ORDERED: VITAMIN D325 MC3 PO (11:38)
[2023-11-03] MEDS ORDERED: SIME80CH PO (11:40)
[2023-11-03] MEDS ORDERED: Bupivacaine 0.5% HCl 5 MG/ML 30MLVIAL ONE (11:59)
[2023-11-03] MEDS ORDERED: propofoL 20 ML IV ONE (12:28)
[2023-11-03] MEDS ORDERED: FentaNYL Citrate 50 MCG/ML 2 ML Injection ONE ×4 (12:29→16:33)
[2023-11-03] MEDS ORDERED: Midazolam HCl 1MG / ML 2ML Vial ONE (12:29)
--- NOTE | 2023-11-03 12:34 | NUR ---
History, Chart, Medications and Allergies reviewed before start of procedure. Patient up to Ambulate independently. Gait steady. Pre-Op teaching done. Pt verbalizes understanding. Patient confirms NPO status and agrees with scheduled surgery. Patient reports completing Chlorhexadine shower X2 prior to admission to hospital. Lungs clear T/O to Auscultation. Surgical site prepped with 2% Chlorhexidine cloth wipe. Patient States Post-Procedure ride home has been arranged.
[2023-11-03] MEDS ORDERED: Esmolol HCL 10 MG/ML 10ML VIAL ONE (13:02)
[2023-11-03] MEDS ORDERED: Rocuronium Bromide 10 MG/ML 5ML Injection IV ONE ×2 (13:02→14:34)
[2023-11-03] MEDS ORDERED: Dexamethasone Sod Phos 10 MG/ML 1ML VIAL ONE (13:08)
[2023-11-03] MEDS ORDERED: Ondansetron HCl 2 MG / ML 2ML Vial ONE (13:08)
[2023-11-03] MEDS ORDERED: HYDROmorphone HCl/Pf 1MG SYR ONE (13:20)
[2023-11-03] MEDS ORDERED: Sugammadex Sodium 200 MG/2ML SDV (100 MG/ML) ONE ×2 (14:35→15:33)
[2023-11-03] MEDS ORDERED: Cyclobenzaprine HCl 10 MG Tab PO PRN (16:05)
[2023-11-03] MEDS ORDERED: Promethazine HCl 12.5 MG Supp PR PRN (16:15)
[2023-11-03] MEDS ORDERED: Ondansetron 4 MG TAB PO PRN (16:15)
[2023-11-03] MEDS ORDERED: HYDROmorphone HCl/Pf 1MG SYR IV PRN (16:15)
[2023-11-03] MEDS ORDERED: Ondansetron HCl 2 MG / ML 2ML Vial IV PRN (16:15)
[2023-11-03] MEDS ORDERED: OxyCODONE 5 mg/Acetamin 325 mg TABLET PO PRN (16:15)
[2023-11-03] MEDS ORDERED: Promethazine HCl 25 MG Tab PO PRN (16:20)
[2023-11-03] MEDS ORDERED: Lactated Ringer's 1,000 ML IV SCH (16:20)
[2023-11-03] MEDS ORDERED: Ibuprofen 400 MG Tab PO PRN (16:20)
[2023-11-03] MEDS ORDERED: Naloxone HCl 0.4MG / ML 1ML Vial IV PRN (16:20)
--- NOTE | 2023-11-03 17:00 | NUR ---
ARRIVAL NOTE PT ARRIVED VIA GOUNERY TO ROOM. PT TRANSFERRED TO BED VIA SLIDE SHEET. PT REPORTS 10/10 c MOVEMENT. PT REPORTS ACUTE ABD PAIN IS EXACERBATED BY CHRONIC BACK PAIN. HEATING PAD PLACED ON BACK, BIOX PLACED ON PT. PT REPORTS NO NAUSEA AT THIS TIME. ORIENTED TO UNIT, BED IN LOWEST POSITION, CALL LIGHT IN REACH.
[2023-11-03] MEDS ORDERED: Ketorolac Tromethamine 30mg Vial IV SCH (18:00)
[2023-11-03] MEDS ORDERED: Simethicone 80 MG Chew PO SCH (18:00)
[2023-11-03] MEDS ORDERED: CeFAZolin Sodium 2,000 MG in NS 100 ML IV SCH (18:30)
--- NOTE | 2023-11-03 18:58 | NUR ---
SHIFT SUMMARY POD 0 TOTAL LAP HYSTR (TLH) c BSO. NO ACUTE CHANGES TODAY. VSS, PT MILDLY HYPERTENSIVE R/T PAIN, 1L NC AT THIS TIME TO MAINTAIN O2 SAT >92%. CONT BI OX IN USE. TOLERATING LIQUIDS, NO FOOD AT THIS TIME. PT REPORTED MINIMAL NAUSEA, MEDICATED PER EMAR & PT REPORTS TOLERABLE. LAP SITE x4 C/D/I c EXOFIN FRANKLIN. HEAT PACK IN USE. PT MEDICATED FOR PAIN PER EMAR, PT REPORTS PAIN CONSISTENTLY @ 6/10 OR GREATER. PT VERBALIZES UNDERSTANDING OF PLAN OVERNIGHT. AWAITING FIRST POST-OP AMBULATION. CRAMER IN PLACE DRAINGING YELLOW URINE. CALL LIGHT IN REACH, BED IN LOWEST POSITION, REPORT GIVEN TO VIANCA RN.
[2023-11-04 04:49] VITALS: BP 119/78
[2023-11-04 05:25] LABS: BASOPHILS ABSOLUTE AUTO 0.02 K/mm3 (0.00-0.23); BASOPHILS PERCENT AUTO 0 % (0-2); EOSINOPHILS ABSOLUTE AUTO 0.01 K/mm3 (0.00-0.68); EOSINOPHILS PERCENT AUTO 0 % (0-6); Hematocrit 36.2 % (33.0-51.0); IMMATURE GRAN ABSOLUTE AUTO 0.03 K/mm3 (0.00-0.10); IMMATURE GRAN PERCENT AUTO 0 % (0-1); LYMPHOCYTES ABSOLUTE AUTO 1.81 K/mm3 (0.84-5.20); LYMPHOCYTES PERCENT AUTO 18 % (21-46); MONOCYTES ABSOLUTE AUTO 0.47 K/mm3 (0.16-1.47); MONOCYTES PERCENT AUTO 5 % (4-13); Mean Corpuscular HGB 29.4 pg (26.0-34.0); Mean Corpuscular HGB Conc 33.1 g/dL (31.5-36.5); Mean Corpuscular Volume 89 fL (80-100); Mean Platelet Volume 10.7 fL (9.1-12.4); NEUTROPHILS ABSOLUTE AUTO 7.72 K/mm3 (1.96-9.15); NEUTROPHILS PERCENT AUTO 77 % (41-73); Platelet Count 272 K/mm3 (150-400); RDW Standard Deviation 42.1 fL (35.1-46.3); Red Blood Cell Count 4.08 M/mm3 (3.80-5.20); White Blood Cell Count 10.06 K/mm3 (4.00-11.30)
[2023-11-04 07:30] VITALS: BP 114/81
--- NOTE | 2023-11-04 08:16 | NUR ---
SUMMARY TOLERATING PO FFOODS,FLUIDS.PAIN CONTROLLED.SCANT VAG BLEED,CRAMER DCD.
[2023-11-04] MEDS ORDERED: Enoxaparin 40 MG/0.4 ML SYR SC SCH (09:00)
[2023-11-04] MEDS ORDERED: Cholecalciferol 1000 Unit Tablet (=25MCG) PO SCH (09:00)
[2023-11-04] MEDS ORDERED: ENOX40I SC (11:37)
[2023-11-04] MEDS ORDERED: Percocet 5-3251 EACH PO (11:38)
[2023-11-04] MEDS ORDERED: PROM25 PO (11:38)
[2023-11-04] MEDS ORDERED: VITAMIN D5000 UNIT PO (11:39)
[2023-11-04 12:21] VITALS: BP 131/88
--- NOTE | 2023-11-04 13:40 | NUR ---
DISCHARGE PT PROVIDED WITH WRITTEN AND VERBAL DISCHARGE INSTRUCTIONS, SHE AND HER S/O REPORTED UNDERSTANDING. PT MET ALL GOALS PRIOR TO DISCHARGE, VSS, ABLE TO PASS FLATUS, TOLERATING PO, AMBULATING AND ABLE TO VOID. PAIN MANAGED AT TIME OF DISCHARGE. PT REPORTED SHE HAD ALREADY OBTAINED PRESCRIPTIONS. ABD BINDER SUPPLIED. LOVENOX EDUCATION GIVEN, PT REPORTED USING LOVENOX IN THE PAST. PT AMBULATED OUT INDEPENDENTLY AT APPROXIMATELY 1240.
== END 2023-11-04 12:40 | disposition home or self-care (01) ==
LOC: ORSCMMR 11:24 → ORD 13:15 → ORSCMMR 13:15 → ORD 13:30 → SURS 16:59 → ORSCMMR 11-04 12:40 → ORD 12-01 13:00
PROVIDERS: Obstetrics & Gynecology
PROC: 0UT7FZZ Resection of Bilateral Fallopian Tubes, Via Natural or Artificial Opening With Percutaneous Endoscopic Assistance (ICD-10-PCS; principal; 2023-11-03 13:15)
PROC: 0UT9FZZ Resection of Uterus, Via Natural or Artificial Opening With Percutaneous Endoscopic Assistance (ICD-10-PCS; principal; 2023-11-03 13:15)
PROC: 0U5F4ZZ Destruction of Cul-de-sac, Percutaneous Endoscopic Approach (ICD-10-PCS; principal; 2023-11-03 13:15)
PROC: 0UT2FZZ Resection of Bilateral Ovaries, Via Natural or Artificial Opening With Percutaneous Endoscopic Assistance (ICD-10-PCS; principal; 2023-11-03 13:15)
DX: N92.0 Excessive and frequent menstruation with regular cycle (principal); N80.329 Endometriosis of the posterior cul-de-sac, unspecified depth; N83.11 Corpus luteum cyst of right ovary; N94.6 Dysmenorrhea, unspecified; E66.01 Morbid (severe) obesity due to excess calories; Z68.41 Body mass index [BMI] 40.0-44.9, adult
CPT/HCPCS: 36415; 85025; 86850; 86900; 86901; 88307; A9270; J0690; J1100; J1170; J1650; J1885; J2250; J2405; J2704; J3010; J7120

== ENCOUNTER → 2024-09-14 | Outpatient (CLI) | payer OTHER ==
[~2024-09-14] MED LIST changes: -CeFAZolin Sodium 2,000 MG in NS 100 ML IV SCH; +ENOX40I SC; -Lactated Ringer's 1,000 ML IV SCH; +PROM25 PO; +Percocet 5-3251 EACH PO; +SIME80CH PO; +VARENICLINE TART1 M2 PO; +VITAMIN D325 MC3 PO; +VITAMIN D5000 UNIT PO
[2024-09-14 15:07] LABS: BASOPHILS ABSOLUTE AUTO 0.08 K/mm3 (0.00-0.23); BASOPHILS PERCENT AUTO 1 % (0-2); EOSINOPHILS ABSOLUTE AUTO 0.18 K/mm3 (0.00-0.68); EOSINOPHILS PERCENT AUTO 2 % (0-6); Hematocrit 39.3 % (33.0-51.0); Hemoglobin 12.9 g/dL (11.5-16.0); IMMATURE GRAN ABSOLUTE AUTO 0.04 K/mm3 (0.00-0.10); IMMATURE GRAN PERCENT AUTO 1 % (0-1); LYMPHOCYTES ABSOLUTE AUTO 2.99 K/mm3 (0.84-5.20); LYMPHOCYTES PERCENT AUTO 35 % (21-46); MONOCYTES ABSOLUTE AUTO 0.62 K/mm3 (0.16-1.47); MONOCYTES PERCENT AUTO 7 % (4-13); Mean Corpuscular HGB 27.7 pg (26.0-34.0); Mean Corpuscular HGB Conc 32.8 g/dL (31.5-36.5); Mean Corpuscular Volume 84 fL (80-100); Mean Platelet Volume 10.8 fL (9.1-12.4); NEUTROPHILS PERCENT AUTO 54 % (41-73); Platelet Count 340 K/mm3 (150-400); RDW Coefficient Variation 13.2 % (11.7-14.2); RDW Standard Deviation 40.5 fL (35.1-46.3); Red Blood Cell Count 4.66 M/mm3 (3.80-5.20); White Blood Cell Count 8.51 K/mm3 (4.00-11.30)
[2024-09-14 22:17] LABS: Alanine Aminotransfer (ALT/SGP 23 U/L (12-78); Albumin, Blood 3.7 g/dL (3.4-5.0); Albumin/Globulin Ratio 0.8 (0.8-1.8); Alk Phos 78 U/L (50-136); Anion Gap 11 mmol/L (3-11); Aspartate Aminotrans (AST/SGOT 11 U/L (12-37); Bilirubin, Total 0.3 mg/dL (0.1-1.0); Blood Urea Nitrogen 11 mg/dL (8-24); Bun/Creatinine Ratio 18.5 (12.0-20.0); CHOL/HDL RATIO 2.2; CO2, Blood 24 mmol/L (21-32); Calcium, Blood 9.4 mg/dL (8.5-10.1); Chloride, Blood 108 mmol/L (98-108); Cholesterol 165 mg/dL (50-200); Creatinine, Blood 0.59 mg/dL (0.40-1.00); Ferritin, Serum 103 ng/mL (8-252); Globulin, Blood 4.5 g/dL (2.2-4.0); Glomerular Filtration Rate 124 (60-); Glucose, Blood 88 mg/dL (70-99); HDL Cholesterol 74 mg/dL (>39); Iron Serum 72 ug/dL (50-170); LDL/HDL RATIO 0.9; Low Density Lipoprotein Chol 67 mg/dL (0-110); Percent Saturation 24.5 % (15.0-50.0); Potassium, Blood 4.1 mmol/L (3.5-5.5); Sodium, Blood 139 mmol/L (136-145); Thyroid Stimulating Hormone 0.698 uIU/mL (0.360-4.800); Total Iron Binding Capacity 294 ug/dL (250-450); Total Protein, Blood 8.2 g/dL (6.4-8.2); Triglycerides 119 mg/dL (30-140); Very Low Density Lipoprot Chol 23 mg/dL (6-28)
== END ==
LOC: LAB SHORT 11:20 → LAB 11:20
PROVIDERS: General Practice
DX: E55.9 Vitamin D deficiency, unspecified (principal); R53.82 Chronic fatigue, unspecified
CPT/HCPCS: 80053; 80061; 82306; 82728; 83036; 83540; 83550; 84443; 85025